=== PATIENT | male | born 1965 | race Caucasian/White ===

== ENCOUNTER 2019-08-04 22:44 | Emergency (ER) | payer SELFPAY ==
[~2019-08-04] VITALS: Ht 172.7 cm; Wt 124.7 kg
[2019-08-04 23:53] LABS: BASOPHILS ABSOLUTE AUTO 0.09 K/mm3 (0.00-0.23); BASOPHILS PERCENT AUTO 1 % (0-2); EOSINOPHILS ABSOLUTE AUTO 0.25 K/mm3 (0.00-0.68); EOSINOPHILS PERCENT AUTO 2 % (0-6); Hematocrit 50.5 % (37.0-53.0); Hemoglobin 16.2 g/dL (13.5-17.5); IMMATURE GRAN ABSOLUTE AUTO 0.08 K/mm3 (0.00-0.10); IMMATURE GRAN PERCENT AUTO 1 % (0-1); LYMPHOCYTES ABSOLUTE AUTO 4.12 K/mm3 (0.84-5.20); LYMPHOCYTES PERCENT AUTO 34 % (21-46); MONOCYTES ABSOLUTE AUTO 1.23 K/mm3 (0.16-1.47); MONOCYTES PERCENT AUTO 10 % (4-13); Mean Corpuscular HGB 29.9 pg (26.0-34.0); Mean Corpuscular HGB Conc 32.1 g/dL (31.5-36.5); Mean Corpuscular Volume 93 fL (80-100); Mean Platelet Volume 9.8 fL (9.1-12.4); NEUTROPHILS ABSOLUTE AUTO 6.53 K/mm3 (1.96-9.15); NEUTROPHILS PERCENT AUTO 53 % (41-73); Platelet Count 341 K/mm3 (150-400); RDW Coefficient Variation 13.9 % (11.7-14.2); RDW Standard Deviation 47.9 fL (35.1-46.3); Red Blood Cell Count 5.42 M/mm3 (4.30-5.90)
[2019-08-05 00:11] LABS: Alanine Aminotransfer (ALT/SGP 50 U/L (12-78); Albumin, Blood 3.5 g/dL (3.4-5.0); Albumin/Globulin Ratio 0.8 (0.8-1.8); Alk Phos 143 U/L (50-136); Anion Gap 6 mmol/L (6-16); Aspartate Aminotrans (AST/SGOT 31 U/L (12-37); Bilirubin, Total 0.2 mg/dL (0.1-1.0); Blood Urea Nitrogen 18 mg/dL (8-24); Bun/Creatinine Ratio 19.6 (12.0-20.0); CO2, Blood 27 mmol/L (21-32); Calcium, Blood 9.1 mg/dL (8.5-10.1); Chloride, Blood 109 mmol/L (98-108); Creatinine, Blood 0.92 mg/dL (0.60-1.20); Globulin, Blood 4.4 g/dL (2.2-4.0); Glomerular Filtration Rate >60 (60-); Glucose, Blood 142 mg/dL (70-99); Sodium, Blood 142 mmol/L (136-145); Total Protein, Blood 7.9 g/dL (6.4-8.2)
[2019-08-05] MEDS ORDERED: ALBU90OI INH (00:36)
[2019-08-05] MEDS ORDERED: Prednisone20 MG PO (00:36)
[2019-08-05] MEDS ORDERED: Zithromax250 MG PO (00:36)
== END 2019-08-05 01:13 | disposition home or self-care (01) ==
LOC: ER 22:44
PROVIDERS: Emergency Medicine
DX: R05 Cough (principal); F17.200 Nicotine dependence, unspecified, uncomplicated; I10 Essential (primary) hypertension
CPT/HCPCS: 71046; 80053; 85025; 93005; 93010; 94640; 99284-25; J1100; J2930

== ENCOUNTER 2022-10-08 07:24 | Inpatient (IN) | payer OTHER ==
[~2022-10-08] VITALS: Ht 175.3 cm; Wt 152.3 kg
[~2022-10-08 07:24] MED LIST: ALBU90OI INH; Prednisone20 MG PO; Zithromax250 MG PO
[2022-10-08 07:45] LABS: BASOPHILS ABSOLUTE AUTO 0.09 K/mm3 (0.00-0.23); BASOPHILS PERCENT AUTO 1 % (0-2); EOSINOPHILS ABSOLUTE AUTO 0.17 K/mm3 (0.00-0.68); EOSINOPHILS PERCENT AUTO 1 % (0-6); Hematocrit 51.6 % (37.0-53.0); Hemoglobin 16.4 g/dL (13.5-17.5); IMMATURE GRAN PERCENT AUTO 1 % (0-1); LYMPHOCYTES ABSOLUTE AUTO 3.69 K/mm3 (0.84-5.20); LYMPHOCYTES PERCENT AUTO 31 % (21-46); MONOCYTES PERCENT AUTO 8 % (4-13); Mean Corpuscular HGB 29.8 pg (26.0-34.0); Mean Corpuscular HGB Conc 31.8 g/dL (31.5-36.5); Mean Corpuscular Volume 94 fL (80-100); Mean Platelet Volume 10.2 fL (9.1-12.4); NEUTROPHILS ABSOLUTE AUTO 7.04 K/mm3 (1.96-9.15); NEUTROPHILS PERCENT AUTO 58 % (41-73); Platelet Count 292 K/mm3 (150-400); RDW Coefficient Variation 14.3 % (11.7-14.2); RDW Standard Deviation 49.5 fL (35.1-46.3); Red Blood Cell Count 5.51 M/mm3 (4.30-5.90); White Blood Cell Count 12.09 K/mm3 (4.00-11.30)
[2022-10-08 08:09] LABS: Albumin, Blood 3.4 g/dL (3.4-5.0); Albumin/Globulin Ratio 0.8 (0.8-1.8); Bilirubin, Total 0.3 mg/dL (0.1-1.0); Bun/Creatinine Ratio 13.1 (12.0-20.0); Calcium, Blood 9.2 mg/dL (8.5-10.1); Creatinine, Blood 0.99 mg/dL (0.60-1.20); Globulin, Blood 4.5 g/dL (2.2-4.0); Potassium, Blood 3.9 mmol/L (3.5-5.5); Total Protein, Blood 7.9 g/dL (6.4-8.2)
[2022-10-08 11:16] VITALS: BP 205/126
[2022-10-08] MEDS ORDERED: AMLO5 PO (11:17)
[2022-10-08] MEDS ORDERED: BENAZEPRIL HCL5 M1 (11:18)
[2022-10-08] MEDS ORDERED: LEVOTHYROXINE13 MCG (11:18)
[2022-10-08 11:25] LABS: Influenza A, PCR NEGATIVE (NEGATIVE); Influenza B, PCR NEGATIVE (NEGATIVE); Resp Syncytial Virus, PCR NEGATIVE (NEGATIVE); SARS-Cov-2 (COVID-19) PCR, MMC NEGATIVE (NEGATIVE)
--- NOTE | 2022-10-08 13:13 | NUR ---
PT ARRIVED TO THE MEDICAL FLOOR VIA GURNEY FROM THE ED, THE PT IS A/OX4, ON O2 @ 2L/MIN. PT WAS ABLE TO TRANSFER FROM THE GURNEY TO THE BED WITH MINIMAL ASSISTANCE. PT WAS ORIENTED TO THE ROOM LAYOUT AND CALL SYSTEM. CALL LIGHT IN REACH
[2022-10-08 13:27] VITALS: BP 203/119
[2022-10-08 13:38] LABS: CHOL/HDL RATIO 4.8; Cholesterol 217 mg/dL (50-200); HDL Cholesterol 45 mg/dL (>39); LDL/HDL RATIO 2.6; Low Density Lipoprotein Chol 116 mg/dL (0-110); Magnesium, Blood 1.9 mg/dL (1.6-2.4); Triglycerides 280 mg/dL (30-160); Very Low Density Lipoprot Chol 56 mg/dL (6-32)
[2022-10-08 13:48] LABS: Anti-Xa UFH, PHA Monitoring <0.10 IU/mL; International Normalized Ratio 0.97; Prothrombin Time Results 10.2 Sec (9.7-11.5)
[2022-10-08 15:00] VITALS: BP 193/119
--- NOTE | 2022-10-08 16:49 | NUR ---
PT IS A/OX4, PLEASANT AND COOPERATIVE. THE PT IS UP WITH MINIMAL AASSIST. PT IS ON 2L/MIN O2 AT THIS TIME AT REST. PT DENIES ANY C/P, SOB AND N/V AT THIS TIME. ECHO WAS DONE THIS AFTERNOON PT HAS BEEN MEDIDICATED FOR HTN PRN. PT IS ON A HEPRIN GTT AT THIS TIME. CALL [facility] IN REACH. WILL CONTINUE TO MONITOR AND ASSESS FOR CHANGES
[2022-10-08 17:12] VITALS: BP 177/114
[2022-10-08 18:42] VITALS: BP 173/93
[2022-10-08 19:28] VITALS: BP 154/102
--- NOTE | 2022-10-09 03:52 | NUR ---
SHIFT SUMMARY NOC PT A/O X 4. PLEASANT AND COOPERATIVE WITH CARE. PT UPSET THAT RT WOULD NOT ALLOW HOME CPAP TUBING TO BE USED BECAUSE IT LOOKS THOUGH PT SMOKES WHILE USING CPAP AT HOME ANT TUBING WAS FILTHY. PT SLEPT WITH 2L/NC O2 AND MAINTAINED SPO2 >92% ON CX BIOX. PT IS ON HEPARIN DRIP GTT STILL. PT ON TELE RUNNING SINUS RHYTHM HR 86 BPM. PT IS CURRENTLY RESTING WITH BED IN LOWEST POSITION, AND CALL LIGHT WITHIN REACH.
[2022-10-09 04:07] VITALS: BP 174/111
[2022-10-09 04:45] VITALS: BP 164/110
[2022-10-09 05:07] LABS: BASOPHILS ABSOLUTE AUTO 0.03 K/mm3 (0.00-0.23); BASOPHILS PERCENT AUTO 0 % (0-2); EOSINOPHILS PERCENT AUTO 0 % (0-6); Hematocrit 51.7 % (37.0-53.0); Hemoglobin 16.9 g/dL (13.5-17.5); IMMATURE GRAN ABSOLUTE AUTO 0.09 K/mm3 (0.00-0.10); IMMATURE GRAN PERCENT AUTO 0 % (0-1); LYMPHOCYTES ABSOLUTE AUTO 1.83 K/mm3 (0.84-5.20); LYMPHOCYTES PERCENT AUTO 9 % (21-46); MONOCYTES ABSOLUTE AUTO 0.32 K/mm3 (0.16-1.47); MONOCYTES PERCENT AUTO 2 % (4-13); Mean Corpuscular HGB 29.8 pg (26.0-34.0); Mean Corpuscular HGB Conc 32.7 g/dL (31.5-36.5); Mean Corpuscular Volume 91 fL (80-100); Mean Platelet Volume 11.1 fL (9.1-12.4); NEUTROPHILS PERCENT AUTO 89 % (41-73); Platelet Count 323 K/mm3 (150-400); RDW Standard Deviation 47.2 fL (35.1-46.3); Red Blood Cell Count 5.67 M/mm3 (4.30-5.90); White Blood Cell Count 20.97 K/mm3 (4.00-11.30)
[2022-10-09 05:09] VITALS: BP 176/122
[2022-10-09 05:22] LABS: Bun/Creatinine Ratio 24.3 (12.0-20.0); Calcium, Blood 9.1 mg/dL (8.5-10.1); Creatinine, Blood 0.95 mg/dL (0.60-1.20)
[2022-10-09 07:32] VITALS: BP 165/101
[2022-10-09 14:54] VITALS: BP 173/99
--- NOTE | 2022-10-09 19:53 | NUR ---
SHIFT SUMMARY PT IS ALERT AND ORIENTED X4. INDEPENDENT IN THE ROOM. ABLE TO MAKE NEEDS KNOWN. 2ND PART OF STRESS TEST PLANNED FOR TOMORROW. BED IS IN THE LOWEST POSITION WITH CALL LIGHT IN REACH. PT REPORTS A DECREASE IN SOB.
[2022-10-09 20:04] VITALS: BP 163/104
[2022-10-10] VITALS (7 sets, daily range): BP systolic 173–204; BP diastolic 101–123
--- NOTE | 2022-10-10 02:44 | NUR ---
SHIFT SUMMARY NOC PT A/O X 4. PT ON 5L/NC O2 WITH SPO2 >92% ON CX BIOX. PT HAS CX HEPARIN INFUSING @ 35 MLS/HR. PT IS NPO IN PREPARATION FOR PART 2 OF STRESS TEST SCHEDULED FOR TODAY. PT HOME CPAP TUBING WAS OK'D BY RT TO USE AFTER PROPER CLEANING. NO ACUTE CHANGES TO REPORT. PT IS CURRENTLY RESTING WITH BED IN LOWEST POSITION, AND CALL LIGHT WITHIN REACH.
--- NOTE | 2022-10-10 02:46 | NUR ---
SHIFT SUMMARY NOC PT A/O X 4. PT ON 5L/NC O2 WITH SPO2 >92% ON CX BIOX. ON TELE SINUS RHTYHM HR 94 BPM. PT HAS CX HEPARIN INFUSING @ 35 MLS/HR. PT IS NPO IN PREPARATION FOR PART 2 OF STRESS TEST SCHEDULED FOR TODAY. PT HOME CPAP TUBING WAS OK'D BY RT TO USE AFTER PROPER CLEANING. NO ACUTE CHANGES TO REPORT. PT IS CURRENTLY RESTING WITH BED IN LOWEST POSITION, AND CALL LIGHT WITHIN REACH.
[2022-10-10 05:21] LABS: Hematocrit 52.6 % (37.0-53.0); Hemoglobin 16.9 g/dL (13.5-17.5); Mean Corpuscular HGB Conc 32.1 g/dL (31.5-36.5); Mean Corpuscular Volume 93 fL (80-100); Mean Platelet Volume 11.2 fL (9.1-12.4); Platelet Count 352 K/mm3 (150-400); RDW Coefficient Variation 14.3 % (11.7-14.2); RDW Standard Deviation 49.2 fL (35.1-46.3); Red Blood Cell Count 5.64 M/mm3 (4.30-5.90); White Blood Cell Count 26.73 K/mm3 (4.00-11.30)
[2022-10-10 05:54] LABS: Bun/Creatinine Ratio 33.9 (12.0-20.0); Calcium, Blood 9.3 mg/dL (8.5-10.1); Creatinine, Blood 1.15 mg/dL (0.60-1.20); Potassium, Blood 4.4 mmol/L (3.5-5.5)
[2022-10-10 06:56] LABS: BAND PERCENT MAN 1 % (0-8); BASOPHILS PERCENT MAN 0 % (0-2); EOSINOPHILS PERCENT MAN 0 % (0-6); LYMPHOCYTES ABSOLUTE MAN 1.33 K/mm3 (0.84-5.20); LYMPHOCYTES PERCENT MAN 5 % (21-46); MONOCYTES PERCENT MAN 3 % (4-13); NEUTROPHILS ABSOLUTE MAN 24.59 K/mm3 (1.96-9.15); SEG NEUTROPHILS PERCENT MAN 91 % (41-73); TOTAL CELLS COUNTED 100
--- NOTE | 2022-10-10 14:51 | NUR ---
PT TO [facility]UC MED FOR POST STRESS SCANS. HEPARIN GTT TO CONTINUE DURING IMAGING.
--- NOTE | 2022-10-10 15:27 | NUR ---
PT RETURNED FROM [facility]
--- NOTE | 2022-10-10 18:27 | NUR ---
SHIFT SUMMARY A&O X 4. BP ELEVATED. MEDS GIVEN ORDERED. PT BEING AGGRESSIVELY DIURESED. LASIX BEING GIVEN ORDERED. STRESS TEST RESULTS WERE ABNORMAL, INFECTIOUS WASTE TECHNICIAN IN TO SEE PT. WILL BE GOING FOR CARDIAC ANGIOGRAM THURSDAY. WANTS TO DIURESE PT MORE BEFORE ANGIO. PT IS ON 5 L'S O2 TO MAINTAIN SATS >90%. WEARS HIS OWN BIPAP AT NOC. IS ON CONT BI-OX. APPETITE IS GOOD. BLOOD SUGARS BEING COVERED PER EMAR. SOLUMEDROL DC'D, IS NOW ON ORAL PREDNISONE. PT REQUESTS BREATHING TREATMENTS PRN. HEPARIN GTT INFUSING PER PHARM. IS PLEASANT & COOPERATIVE WITH ALL CARE. IS USING URINAL INDEPENDENT AT BEDSIDE. IS 1 PERSON ASSIST TO RESTROOM IF NEEDED. PLAN IS TO CONTINUE DIURESING OVER THE WEEKEND AND GOING TO FOOD AIDE ON THURSDAY.
[2022-10-11] VITALS (7 sets, daily range): BP systolic 131–189; BP diastolic 86–120
--- NOTE | 2022-10-11 02:25 | NUR ---
PT MORNING BP WAS ELEVATED. RETOOK WITH MANUAL PUMP AND CUFF WHICH WAS UNCHANGED FROM PREVIOUS READING. CALLED TO NOTIFY HOSPITALIST DR. WISDOM. DR. WISDOM VOICED THAT HE WOULD LOOK IN PT CHART AND ADD NECESSARY ORDERS IN HIMSELF.
--- NOTE | 2022-10-11 03:52 | NUR ---
SHIFT MOSTLY UNREMARKABLE. 2100 MEDICATIONS ADMINISTERED WITHOUT DIFFICULTY. CONTINUOUS HEPARIN RUNNING THROUGHOUT SHIFT. BP HAS BEEN RUNNING HIGH THROUGHOUT SHIFT, HOSPITALIST DR. WISDOM NOTIFIED. SEE RELATED NOTE FOR DETAILS. PT HAS BEEN AOX4, PLEASANT, COOPERATIVE WITH CARE. BED LOCKED IN LOWEST POSITION. PT HAS HAD CPAP ON OVER COURSE OF NIGHT. SATTING >90% ON CONTINUOUS PULSE OX. CALL LIGHT LEFT WITHIN REACH.
--- NOTE | 2022-10-11 05:25 | NUR ---
CALL FROM PHARMACY. STILL WAITING ON XA LAB DRAW RESULTS TO ARRIVE FROM LAB. ORDER WAS FOR LAB TO BE DRAWN AT 0300. EXPLAINED THAT TWO PEOPLE FROM LAB CAME OVER AT ABOUT 0300, ATTEMPTED TO DRAW ON PATIENT AND COULD NOT. THEN LEFT. CALLED LAB. LAB EXPLAINED THAT THEY ARE SHORT STAFFED AND THE TWO PEOPLE THEY HAVE AVAILABLE ARE THE TWO THAT ALREADY TRIED TO GET A DRAW ON PT. EXPLAINED THAT PHARMACY CALLED DUE TO RESULTS BEING LATE. PERSON FROM LAB VOICED THAT THEY WOULD HAVE SOMEONE COME TRY AGAIN.
[2022-10-11 05:50] LABS: BASOPHILS ABSOLUTE AUTO 0.04 K/mm3 (0.00-0.23); BASOPHILS PERCENT AUTO 0 % (0-2); Hematocrit 51.8 % (37.0-53.0); Hemoglobin 16.9 g/dL (13.5-17.5); LYMPHOCYTES ABSOLUTE AUTO 1.39 K/mm3 (0.84-5.20); LYMPHOCYTES PERCENT AUTO 6 % (21-46); MONOCYTES ABSOLUTE AUTO 1.91 K/mm3 (0.16-1.47); MONOCYTES PERCENT AUTO 8 % (4-13); Mean Corpuscular HGB Conc 32.6 g/dL (31.5-36.5); Mean Corpuscular Volume 92 fL (80-100); Mean Platelet Volume 10.4 fL (9.1-12.4); Platelet Count 333 K/mm3 (150-400); RDW Coefficient Variation 14.2 % (11.7-14.2); RDW Standard Deviation 48.3 fL (35.1-46.3); Red Blood Cell Count 5.63 M/mm3 (4.30-5.90); White Blood Cell Count 24.41 K/mm3 (4.00-11.30)
[2022-10-11 05:51] LABS: EOSINOPHILS ABSOLUTE AUTO 0.77 K/mm3 (0.00-0.68); EOSINOPHILS PERCENT AUTO 3 % (0-6); IMMATURE GRAN ABSOLUTE AUTO 0.17 K/mm3 (0.00-0.10); IMMATURE GRAN PERCENT AUTO 1 % (0-1); NEUTROPHILS ABSOLUTE AUTO 20.13 K/mm3 (1.96-9.15); NEUTROPHILS PERCENT AUTO 82 % (41-73)
[2022-10-11 06:15] LABS: Albumin, Blood 3.3 g/dL (3.4-5.0); Anion Gap 7 mmol/L (6-16); Blood Urea Nitrogen 37 mg/dL (8-24); Bun/Creatinine Ratio 36.6 (12.0-20.0); CO2, Blood 33 mmol/L (21-32); Calcium, Blood 8.9 mg/dL (8.5-10.1); Chloride, Blood 98 mmol/L (98-108); Creatinine, Blood 1.01 mg/dL (0.60-1.20); Glomerular Filtration Rate 87 (60-); Glucose, Blood 263 mg/dL (70-99); Magnesium, Blood 2.5 mg/dL (1.6-2.4); Phosphorus, Blood 3.3 mg/dL (2.5-4.9); Potassium, Blood 4.5 mmol/L (3.5-5.5); Sodium, Blood 138 mmol/L (136-145)
--- NOTE | 2022-10-11 16:20 | NUR ---
PATIENT RESTING IN BED THROUGHOUT TODAYS SHIFT. HE REPORTS FEELING TIRED AND INTERMITTENTLY NAPS WHILE RESTING IN BED. IV TO RAC PATENT AND CONTINUING HEPARIN DRIP TO MAINTAIN THERAPEUTIC LEVELS. PATIENT DENIES ANY DISTRESS OR PAIN. PATIENT COOPERATIVE WITH CARE AND COMPLIANT WITH ALL MEDICATIONS. BLOOD PRESSURES CONTINUE TO TREND DOWN WITH SYSTOLIC DECREASING FROM 180'S TO 130'S. PATIENT RECEIVING DIURESIS TREATMENT AND HAS BEEN UTILIZING HIS URINALS AT BEDSIDE TO VOID. TELEMETRY MONITORING IN PLACE AND SHOWING SR WITH HEART RATES IN THE 80'S. LANTUS INITIATED TODAY FOR GLUCOSE CONTROL, PATIENT REPORTS NO ADMINISTRATION OF INSULIN PRODUCTS WHEN AT HOME. PATIENT UP TO SHOWER PER HIS REQUEST. NURSING WILL CONTINUE TO MONITOR.
--- NOTE | 2022-10-11 22:46 | NUR ---
ASSUMED CARE OF PT AT 2220. PT SLEEPING IN BED WITH 5L NC ON. RR EVEN AND UNLABORED. CALL LIGHT WITHIN REACH.
[2022-10-12 03:20] VITALS: BP 166/97
[2022-10-12 03:24] LABS: BASOPHILS ABSOLUTE AUTO 0.03 K/mm3 (0.00-0.23); BASOPHILS PERCENT AUTO 0 % (0-2); EOSINOPHILS PERCENT AUTO 0 % (0-6); Hematocrit 54.2 % (37.0-53.0); Hemoglobin 17.6 g/dL (13.5-17.5); IMMATURE GRAN ABSOLUTE AUTO 0.14 K/mm3 (0.00-0.10); IMMATURE GRAN PERCENT AUTO 1 % (0-1); LYMPHOCYTES ABSOLUTE AUTO 3.07 K/mm3 (0.84-5.20); LYMPHOCYTES PERCENT AUTO 16 % (21-46); MONOCYTES ABSOLUTE AUTO 2.31 K/mm3 (0.16-1.47); MONOCYTES PERCENT AUTO 12 % (4-13); Mean Corpuscular HGB 30.1 pg (26.0-34.0); Mean Corpuscular HGB Conc 32.5 g/dL (31.5-36.5); Mean Corpuscular Volume 93 fL (80-100); Mean Platelet Volume 10.3 fL (9.1-12.4); NEUTROPHILS ABSOLUTE AUTO 14.26 K/mm3 (1.96-9.15); NEUTROPHILS PERCENT AUTO 72 % (41-73); Platelet Count 306 K/mm3 (150-400); RDW Coefficient Variation 14.3 % (11.7-14.2); Red Blood Cell Count 5.85 M/mm3 (4.30-5.90); White Blood Cell Count 19.81 K/mm3 (4.00-11.30)
[2022-10-12 03:42] LABS: Bun/Creatinine Ratio 32.2 (12.0-20.0); Calcium, Blood 8.9 mg/dL (8.5-10.1); Creatinine, Blood 0.99 mg/dL (0.60-1.20); Potassium, Blood 3.9 mmol/L (3.5-5.5)
--- NOTE | 2022-10-12 04:00 | NUR ---
SHIFT SUMMARY; SINCE ASSUMPTION OF CARE THERE HAS BEEN NO ACUTE CHANGES. THE PT HAS BEEN SLEEPING IN BED WITH HIS CPAP IN PLACE. O2 SATS ARE >90%. THE PT IS AXO X4 AND INDEPENDENTLY USES THE URINAL AT BEDSIDE. THE PT CALLS APPROPIRATLEY FOR ALL OTHER NEEDS. HEPARIN DRIP REMAINS INFUSING. TELE IS IN PLACE, NO EVENTS OVERNIGHT. THE PT CONTINUES TO BE DIURESED WHILE WAITING FOR HIS ANGIOGRAM ON THURSDAY. THE PT DENIES ANY CHEST PAIN/PRESSURE, SOB, PAIN OR N/V. CURRENTLY THE PT IS SLEEPING IN BED WITH THE BED IN THE LOWEST POSITION AND THE CALL LIGHT AT BEDSIDE.
[2022-10-12 07:48] VITALS: BP 139/99
[2022-10-12 15:51] VITALS: BP 124/73
--- NOTE | 2022-10-12 15:57 | NUR ---
PATIENT SLEEPING AT ASSUMPTION OF CARE AND IS ROUSABLE TO VOICE, A&OX4, BUT REPORTEDLY "VERY TIRED" AND OBSERVABLY NAPPING THROUGHOUT THE MORNING AND EARLY AFTERNOON. O2 SATS WHILE ASLEEP DROP LOW 84% WITH HOME BIPAP RUNNING AT 5LPM AND HIGH 94% APNEA PERIODS OF APPROX 20-25 SECONDS OBSERVED WHILE SLEEPING FOLLOWED BY RETURN OF SPONTANEOUS RESPIRATIONS. PROVIDER AT BEDSIDE TO REVIEW PLAN OF CARE AND RECCOMENDS PCP EVALUATE CURRENT HOME BIPAP EQUIPMENT AND USE. CARDIOLOGY AT BEDSIDE FOR CONSENT OF ANGIOGRAM SCHEDULED FOR TOMORROW MORNING (10-11AM). HEPARIN DRIP STILL RUNNING WITH NO TITRATION ORDERS. MOST RECENT INR: 0.38. BLOOD PRESSURE TRENDING DOWNWARD THROUGHOUT THE SHIFT. DRSSING TO PIV AT RFA REPLACED AND REMAINS PATENT. NURSING WILL CONTINUE TO MONITOR.
--- NOTE | 2022-10-12 18:00 | NUR ---
NURSE NOTE THIS RN AGREES WITH SHIFT SUMMARY AND SHIFT ASSESSMENT OF BLACK LEATHER BUFFER.
[2022-10-12 20:03] VITALS: BP 120/81
[2022-10-13] VITALS (12 sets, daily range): BP systolic 105–184; BP diastolic 56–105
[2022-10-13 03:34] LABS: Hematocrit 53.8 % (37.0-53.0); Hemoglobin 17.5 g/dL (13.5-17.5); Mean Corpuscular HGB 30.1 pg (26.0-34.0); Mean Corpuscular HGB Conc 32.5 g/dL (31.5-36.5); Mean Corpuscular Volume 92 fL (80-100); Platelet Count 288 K/mm3 (150-400); RDW Coefficient Variation 14.3 % (11.7-14.2); RDW Standard Deviation 48.7 fL (35.1-46.3); Red Blood Cell Count 5.82 M/mm3 (4.30-5.90); White Blood Cell Count 19.39 K/mm3 (4.00-11.30)
[2022-10-13 03:49] LABS: Albumin, Blood 2.9 g/dL (3.4-5.0); Anion Gap 7 mmol/L (6-16); Blood Urea Nitrogen 31 mg/dL (8-24); Bun/Creatinine Ratio 32.3 (12.0-20.0); CO2, Blood 34 mmol/L (21-32); Calcium, Blood 8.3 mg/dL (8.5-10.1); Chloride, Blood 96 mmol/L (98-108); Creatinine, Blood 0.96 mg/dL (0.60-1.20); Glomerular Filtration Rate 93 (60-); Glucose, Blood 134 mg/dL (70-99); Phosphorus, Blood 2.7 mg/dL (2.5-4.9); Potassium, Blood 3.7 mmol/L (3.5-5.5); Sodium, Blood 137 mmol/L (136-145)
--- NOTE | 2022-10-13 04:08 | NUR ---
SUMMARY: NO ACUTE EVENTS OVERNIGHT. PATIENT HAD AN UPSET STOMACH WITH A FEW BMS OVERNIGHT. TOOK A SHOWER. HEPARIN DRIP RUNNING CONTINUOUSLY. WORE CPAP WHILE SLEEPING. 5L NC WHEN AWAKE. NPO SINCE MIDNIGHT FOR ANGIO TODAY.
--- NOTE | 2022-10-13 10:21 | NUR ---
PT REPORTED FEELING NAUSEA. CHECKED CBG AND IT WAS 154. TREATED NAUSEA PER EMAR.
--- NOTE | 2022-10-13 13:55 | NUR ---
PT AOX4 AND COOPERATIVE OF ALL CARE. PT INDEPENDENT IN ROOM WILL NEED HELP AT TIMES WITH LINES. PT HAD ANGIO TODAY. REPORT WAS GIVEN TO RECIEVING CHERYLE COOK. ALL PERSONAL ITEMS WERE MOVED TO PT'S ROOM IN PCU 5.
--- NOTE | 2022-10-13 14:00 | NUR ---
Patient arrived from [facility] from [facility] on tele. Patient is alert and oriented and is able to communicate his needs. getting CBG as probanly did not do during cath. He has TR band site right wrist and has 11cc in band and is WNL, no hematoma or oozing. Will call to see if patient can eat.
--- NOTE | 2022-10-13 17:08 | NUR ---
Patient's family at bedside and had Dr Cortes come and talk with them. He is currently sleeping on personal CPAP nasal prongs. All air out of TR band and no bruising or oozing or hematoma. he has ate since he has been back. Talked with field nurse case manager to get new PCP prior to leaving tomorrow. IV RAC patent and flushed post meds. CBG checked no coverage.
--- NOTE | 2022-10-13 23:51 | NUR ---
ASSUMPTION OF CARE/ASSESSMENT: ASSUMED CARE OF PT AT 2100. PT AWAKE AND LYING IN BED; A&O X 4 AND COOPERATIVE WITH CARE. PT ON HOME CPAP AND MANAGING WELL; C/O EXERTIONAL DYSPNEA WHEN UP TO USING URINAL AND WHEN REPOSITIONING IN BED, BUT ABLE TO CATCH BREATH ONCE AT REST. PT SR ON MONITOR WITH HR IN THE 70-80. SBP 120'S, NO C/O CHEST PAIN AT THIS TIME. PT HYPOACTIVE WITH ABD OBESE, SOFT AND NON-TENDER; TOLERATING PO INTAKE. PT USING URINAL AT BEDSIDE INDEPENDENTLY; URINE CLEAR, YELLOW. PT HAS NO PAIN COMPLAINTS AT THIS TIME. BED LOWERED, CALL LIGHT IN REACH, WILL CONTINUE TO MONITOR UNTIL ONCOMING RN ARRIVES.
[2022-10-14] VITALS (19 sets, daily range): BP systolic 104–231; BP diastolic 66–154
--- NOTE | 2022-10-14 06:31 | NUR ---
SHIFT SUMMARY: NO ACUTE CHANGES OVERNIGHT. PT HAD EPISODE OF HYPERTENSION WITH SBP 180-200; PT MEDICATED WITH PRN HYDRALAZINE AND SBP DOWN TO 120-140'S. PT HAD SOME NAUSEA THIS MORNING AND MEDICATED PER EMAR AND GOT UP TO THE SHOWER EARLY THIS MORNING. COMPLETE LINEN CHANGE ON BEDDING AND PT INDEPENDENT WITH SHOWER. PT SLEEPING SINCE SHOWER. PT REMAINS ON CPAP, VSS. BED LOWERED, CALL LIGHT IN REACH, WILL CONTINUE TO MONITOR.
[2022-10-14 09:29] LABS: Albumin, Blood 2.6 g/dL (3.4-5.0); Anion Gap 6 mmol/L (6-16); Blood Urea Nitrogen 30 mg/dL (8-24); Bun/Creatinine Ratio 31.4 (12.0-20.0); CO2, Blood 31 mmol/L (21-32); Calcium, Blood 8.4 mg/dL (8.5-10.1); Chloride, Blood 100 mmol/L (98-108); Creatinine, Blood 0.96 mg/dL (0.60-1.20); Glomerular Filtration Rate 93 (60-); Glucose, Blood 226 mg/dL (70-99); Phosphorus, Blood 2.6 mg/dL (2.5-4.9); Potassium, Blood 3.8 mmol/L (3.5-5.5); Sodium, Blood 137 mmol/L (136-145)
--- NOTE | 2022-10-14 15:40 | NUR ---
RN/SHIFT SUMMARY MORNING REPORT AND GREETING PERFORMED WITH PATIENT. ASSESSMENT AND MEDICATION PASS PERFORMED. THE PATIENT SEEMS TO BE IN GOOD SPIRIT WITH LITTLE TO NO DISCOMFORT AT THE TIME OF ASSESSMENT AND SO ON THROUGHOUT THE MORNING AND EARLY AFTERNOON. THE PATIENT REFUSED A BEDBATH PRIOR TO TRANSFER TO MEDICAL FLOOR. THE PATIENT WAS THEN TRANSFERED TO MEDICAL FLOOR WITH REPORT GIVEN TO MEDICAL FLOOR NURSE. THE PATIENT TRANSFERED VIA WHEELCHAIR.
--- NOTE | 2022-10-14 18:44 | NUR ---
RN/SHIFT SUMMARY MORNING REPORT AND PATIENT GREETED. PATIENT ASSESSMENT AND MEDICATION PASS COMPLETED. PATIENT SEEMED TO BE VERY TIRED AND SLEPT WITH THE USE OF A CPAP FROM HOME FOR A MAJORITY OF THE DAY WHICH IS BASELINE FOR HIM.THE DAY WAS UNEVENTFUL WITH THE EXCEPTION OF GETTING BLOOD SUGARS IN THERAPEUTIC RANGE AND TITRATING OXYGEN UNTIL THE PATIENT TOLERATES ROOM AIR. THE PATIENT THEN HAD A SMALL BOUT OF EPISTAXIS THAT STOPED ON ITS OWN. THE PATIENT WAS GIVEN SOME LUBRICANT TO ASSIST IN KEEPING THE NAIRS LUBRICATED.
[2022-10-15 05:25] VITALS: BP 95/77
[2022-10-15 06:16] LABS: Hematocrit 51.5 % (37.0-53.0); Hemoglobin 16.5 g/dL (13.5-17.5); Mean Corpuscular HGB 29.3 pg (26.0-34.0); Mean Corpuscular Volume 92 fL (80-100); Mean Platelet Volume 10.6 fL (9.1-12.4); Platelet Count 283 K/mm3 (150-400); RDW Standard Deviation 47.6 fL (35.1-46.3); Red Blood Cell Count 5.63 M/mm3 (4.30-5.90); White Blood Cell Count 17.34 K/mm3 (4.00-11.30)
[2022-10-15 06:48] LABS: Albumin, Blood 2.7 g/dL (3.4-5.0); Anion Gap 6 mmol/L (6-16); Blood Urea Nitrogen 29 mg/dL (8-24); Bun/Creatinine Ratio 27.9 (12.0-20.0); CO2, Blood 33 mmol/L (21-32); Calcium, Blood 8.7 mg/dL (8.5-10.1); Chloride, Blood 98 mmol/L (98-108); Creatinine, Blood 1.04 mg/dL (0.60-1.20); Glomerular Filtration Rate 84 (60-); Glucose, Blood 142 mg/dL (70-99); Phosphorus, Blood 3.5 mg/dL (2.5-4.9); Potassium, Blood 3.7 mmol/L (3.5-5.5); Sodium, Blood 137 mmol/L (136-145)
--- NOTE | 2022-10-15 06:59 | NUR ---
SHIFT SUMMARY PATIENT ALERT AND ORIENTED X4. PATIENT INDEPENDENT IN ROOM. MEDICATED PER EMAR FOR NAUSEA. VITAL SIGNS STABLE. PATIENT WORE HOME CPAP OVERNIGHT. NO ACUTE ISSUES NOTED OVERNIGHT. WILL CONTINUE TO MONITOR. CALL LIGHT WITHIN REACH.
[2022-10-15 08:00] VITALS: BP 132/93
--- NOTE | 2022-10-15 10:55 | NUR ---
RN/SHIFT SUMMARY MORNING REPORT AND PATIENT GREETING. MORNING MEDICATION AND ASSESSMENT. THE PATIENT IS RESTING REGULARLY THROUGHOUT THE MORNING.
[2022-10-15] MEDS ORDERED: ALBU90OI INH (12:25)
[2022-10-15] MEDS ORDERED: AMLO10 PO (12:26)
[2022-10-15] MEDS ORDERED: Synthroid200 MCG PO (12:27)
[2022-10-15] MEDS ORDERED: ASPI81CH PO (12:27)
[2022-10-15] MEDS ORDERED: ATOR40TA PO ×2 (12:28→12:31)
[2022-10-15] MEDS ORDERED: EUTHYROX125 MCG PO (12:31)
[2022-10-15] MEDS ORDERED: CLOP75 PO (12:32)
[2022-10-15] MEDS ORDERED: FURO40 PO (12:32)
[2022-10-15] MEDS ORDERED: LEVO750 PO (12:33)
[2022-10-15] MEDS ORDERED: ENTRESTO 49 MG1 EACH PO (12:34)
[2022-10-15] MEDS ORDERED: METO100ER PO (12:34)
[2022-10-15] MEDS ORDERED: VISBIOME 112.51 EACH PO (12:35)
[2022-10-15] MEDS ORDERED: METF500 PO (12:36)
== END 2022-10-15 13:06 | disposition home or self-care (01) | DRG 246 ==
LOC: ER 07:24 → MEDS 09:50 → PCU 10-13 11:45
PROVIDERS: Emergency Medicine; Internal Medicine; ADMIT Internal Medicine
PROC: 5A09357 Assistance with Respiratory Ventilation, Less than 24 Consecutive Hours, Continuous Positive Airway Pressure (ICD-10-PCS; 2022-10-08)
PROC: 027034Z Dilation of Coronary Artery, One Artery with Drug-eluting Intraluminal Device, Percutaneous Approach (ICD-10-PCS; principal; 2022-10-13)
PROC: 4A023N7 Measurement of Cardiac Sampling and Pressure, Left Heart, Percutaneous Approach (ICD-10-PCS; 2022-10-13)
PROC: B211YZZ Fluoroscopy of Multiple Coronary Arteries using Other Contrast (ICD-10-PCS; 2022-10-13)
PROC: B24 Imaging, Heart, Ultrasonography (ICD-10-PCS; 2022-10-13)
DX: I21.4 Non-ST elevation (NSTEMI) myocardial infarction (principal); I50.33 Acute on chronic diastolic (congestive) heart failure; J18.9 Pneumonia, unspecified organism; J96.21 Acute and chronic respiratory failure with hypoxia; J44.0 Chronic obstructive pulmonary disease with (acute) lower respiratory infection; J44.1 Chronic obstructive pulmonary disease with (acute) exacerbation; Z68.41 Body mass index [BMI] 40.0-44.9, adult; I43 Cardiomyopathy in diseases classified elsewhere; I11.0 Hypertensive heart disease with heart failure; E66.01 Morbid (severe) obesity due to excess calories; G47.33 Obstructive sleep apnea (adult) (pediatric); E03.9 Hypothyroidism, unspecified; I25.10 Atherosclerotic heart disease of native coronary artery without angina pectoris; E11.65 Type 2 diabetes mellitus with hyperglycemia; I08.0 Rheumatic disorders of both mitral and aortic valves; I25.5 Ischemic cardiomyopathy; Z20.822 Contact with and (suspected) exposure to COVID-19; T38.0X5A Adverse effect of glucocorticoids and synthetic analogues, initial encounter; R74.01 Elevation of levels of liver transaminase levels; K76.1 Chronic passive congestion of liver; F12.10 Cannabis abuse, uncomplicated; R94.31 Abnormal electrocardiogram [ECG] [EKG]; R26.9 Unspecified abnormalities of gait and mobility; Z91.148 Patient's other noncompliance with medication regimen for other reason; Z87.891 Personal history of nicotine dependence; Z79.51 Long term (current) use of inhaled steroids; Z79.899 Other long term (current) drug therapy
CPT/HCPCS: 0241U; 36415; 71046; 76937; 78452; 80048; 80053; 80061; 80069; 82947; 83036; 83605; 83735; 83880; 84145; 84439; 84443; 84484; 85025; 85027; 85049; 85347; 85520; 85610; 85730; 87040; 93005; 93010; 93017; 93306; 93458; 94640; 94660; 94664; 94762; 96374; 96375; 97162; 97530; 99285-25; A9270; A9500; C1725; C1769; C1874; C1887; C1894; C9600; J0360; J0696; J0706; J1644; J1650; J1815; J1940; J2250; J2405; J2785; J2930; J3010; J3246; J7030; J7050; J7512; Q9967

== ENCOUNTER 2023-03-16 14:51 | Inpatient (IN) | payer OTHER ==
[~2023-03-16] VITALS: Ht 172.7 cm; Wt 139.1 kg
[~2023-03-16 14:51] MED LIST changes: +AMLO10 PO; +AMLO5 PO; +ASPI81CH PO; +ATOR40TA PO; +BENAZEPRIL HCL5 M1; +CLOP75 PO; +ENTRESTO 49 MG1 EACH PO; +EUTHYROX125 MCG PO; +FURO40 PO; +LEVO750 PO; +LEVOTHYROXINE13 MCG; +METF500 PO; +METO100ER PO; +Synthroid200 MCG PO; +VISBIOME 112.51 EACH PO
[2023-03-16 15:32] LABS: BASOPHILS ABSOLUTE AUTO 0.08 K/mm3 (0.00-0.23); BASOPHILS PERCENT AUTO 1 % (0-2); EOSINOPHILS ABSOLUTE AUTO 0.12 K/mm3 (0.00-0.68); EOSINOPHILS PERCENT AUTO 1 % (0-6); Hematocrit 51.1 % (37.0-53.0); Hemoglobin 16.2 g/dL (13.5-17.5); IMMATURE GRAN ABSOLUTE AUTO 0.03 K/mm3 (0.00-0.10); IMMATURE GRAN PERCENT AUTO 0 % (0-1); LYMPHOCYTES ABSOLUTE AUTO 2.25 K/mm3 (0.84-5.20); LYMPHOCYTES PERCENT AUTO 17 % (21-46); MONOCYTES ABSOLUTE AUTO 1.02 K/mm3 (0.16-1.47); MONOCYTES PERCENT AUTO 8 % (4-13); Mean Corpuscular HGB 29.3 pg (26.0-34.0); Mean Corpuscular HGB Conc 31.7 g/dL (31.5-36.5); Mean Corpuscular Volume 92 fL (80-100); Mean Platelet Volume 10.6 fL (9.1-12.4); NEUTROPHILS ABSOLUTE AUTO 9.58 K/mm3 (1.96-9.15); NEUTROPHILS PERCENT AUTO 73 % (41-73); Platelet Count 327 K/mm3 (150-400); RDW Coefficient Variation 15.4 % (11.7-14.2); RDW Standard Deviation 52.2 fL (35.1-46.3); Red Blood Cell Count 5.53 M/mm3 (4.30-5.90); White Blood Cell Count 13.08 K/mm3 (4.00-11.30)
[2023-03-16 15:34] LABS: Albumin, Blood 3.6 g/dL (3.4-5.0); Albumin/Globulin Ratio 0.8 (0.8-1.8); Bilirubin, Total 0.3 mg/dL (0.1-1.0); Bun/Creatinine Ratio 10.4 (12.0-20.0); Creatinine, Blood 1.15 mg/dL (0.60-1.20); Globulin, Blood 4.7 g/dL (2.2-4.0); Potassium, Blood 4.4 mmol/L (3.5-5.5); Total Protein, Blood 8.3 g/dL (6.4-8.2)
[2023-03-16 19:31] LABS: Anti-Xa UFH, PHA Monitoring <0.10 IU/mL; International Normalized Ratio 1.05
[2023-03-16 20:23] VITALS: BP 145/79
[2023-03-16 23:20] VITALS: BP 127/80
[2023-03-17 03:38] VITALS: BP 132/85
[2023-03-17 03:47] LABS: Hematocrit 49.5 % (37.0-53.0); Hemoglobin 15.9 g/dL (13.5-17.5); Mean Corpuscular HGB 29.3 pg (26.0-34.0); Mean Corpuscular HGB Conc 32.1 g/dL (31.5-36.5); Mean Corpuscular Volume 91 fL (80-100); Platelet Count 311 K/mm3 (150-400); RDW Coefficient Variation 15.5 % (11.7-14.2); RDW Standard Deviation 52.1 fL (35.1-46.3); Red Blood Cell Count 5.43 M/mm3 (4.30-5.90); White Blood Cell Count 14.44 K/mm3 (4.00-11.30)
[2023-03-17 05:26] LABS: Bun/Creatinine Ratio 11.5 (12.0-20.0); Calcium, Blood 8.7 mg/dL (8.5-10.1); Creatinine, Blood 1.22 mg/dL (0.60-1.20); Potassium, Blood 3.9 mmol/L (3.5-5.5)
--- NOTE | 2023-03-17 06:26 | NUR ---
SHIFT SUMMARY PATIENT ARRIVED TO PCU 14 VIA STRETCHER. PATIENT IS ALERT AND ORIENTED X4, STEADY ON HIS FEET AND SELF TRANSFERRED TO THE HOSPITAL BED. PATIENT DENIED HAVING CHEST PAIN. PLACED ON 2 LITERS O2 FOR SLEEP PATIENT DID NOT TOLERATE HOSPITAL PROVIDED BIPAP, REPORTED IT MADE HIM FEEL SICK. MEDICATED PER EMAR FOR NAUSEA. VITAL SIGNS STABLE. TROPONIN TRENDING DOWN. WILL CONTINUE TO MONITOR. CALL LIGHT WITHIN REACH.
[2023-03-17 07:58] VITALS: BP 132/96
--- NOTE | 2023-03-17 10:58 | NUR ---
AM NOTE: PT WAS UPSET THIS MORNING AFTER A DOSE OF LASIX WAS GIVEN AND PT HAD URINARY INCONTINCE. PT WANTED TO LEAVE AMA NECKTIE OPERATOR POCKETS AND PIECES CAME AND TRIED TO EXPLAIN WHY HE'S IN THE HOSPITAL AFTER THIS RN ALSO EDUCATED THE PT, PT KEEPS SAYING HE CANT KEEP PEEING HIS PANTS AND NOT BEING ABLE TO GO TO THE BATHROOM WITH ALL THE WIRES AND LINES HOOKED UP TO HIM, PT DOESNT SEEM TO REMEMBER THAT THIS RN MADE HIM AWARE OF HIS MORNING MEDS AND WAS INSTRUCTED TO USE THE URINAL AT THE TABLE THEN PT INSISTED TO GET BACK IN BED SO HE CAN GET SOME REST, THEN PT WOKE UP ASKING FO FOOD, PT ATE BREKAFAST WITH NO ISSUES. PT CALMED DOWN AFTER NECKTIE OPERATOR POCKETS AND PIECES TALKED TO HIM WENT BACK TO HIS ROOM AND AGREED TO GET IN THE SHOWER. PT THEN REALIZED HE WAS JUST UPSET EMBARASSED AND APOLOGIZED ABOUT IT. PT ASKED TO CALL HIS MOM TO SHE CAN COME OVER, MOM AT THE BED SIDE AT THIS TIME, ECHO BEING DONE
[2023-03-17 11:16] VITALS: BP 132/88
--- NOTE | 2023-03-17 15:05 | NUR ---
THIS RN WAS CALLED INTO PT'S ROOM, PT'S IV GOT PULLED WITH BLOOD EVERYWHERE IN THE ROOM AND BATHROOM SINK, PT WAS DEFENSIVE AND UPSET AGAIN THAT ALL HE DID WAS TO TRY TO USE THE URINAL. WATCHMAKING TEACHER STATED HE PULLED HIS SPO2 CORD AND TELE AND WAS BANGING THE BOX IN THE TABLE AND THAT THE PT DIDNT PUSH HIS BUTTON TO CALL FOR HELP, AGAIN PT NOT UNDERSTANDING THAT HE CANT WALK AROUND THE ROOM WITHOUT GETTING ANY HELP BECAUSE OF THE IV AND CORDS AND HE KEEPS INSISTING THAT ALL HE DID IS TO GET UP AND USE THE URINAL WAS EDUCATED AND REDIRECTED SO MANY TIMES. PT REMAINS DEFENSIVE TALKING TO COMPOSITE SCIENCE TEACHER RIGHT NOW WITH MOM AT THE BEDSIDE DUE TO THIS BEHAVIORAL ISSUES.
[2023-03-17 16:02] VITALS: BP 127/82
--- NOTE | 2023-03-17 17:53 | NUR ---
PT SUMMARY: DR BARRIOS WAS ABLE TO DISCUSS ISSUE IN THE PT'S ROOM WITH BOTH MOM AND THE PT, BOTH AGREEABLE WITH THE PLAN, HEPARIN GTT SWITCHED TO THERAPEUTIC DOSE OF LOVENOX SHOT FIRST DOSE WAS GIVEN, PT AGREED TO FOLLOW TREATMENT/PROTOCOL AT THIS TIME. IV PLACED ON LEFT FOREARM, TELE WAS PLACED BACK, OFFERED URINAL WHEN THIS RN WAS IN THE PT'S ROOM. CONDOM CATH WAS PLACED ONCE DIDNT WORK FOR THE PT. PT ABLE TO AMBULATE TO THE BATHROOM. TOOTH CUTTER ABLE TO MAKE PHONE CALLS AND MAKE CARDIOLOGY OUTPT APPT. PT TRANSITIONED TO MED WITH TELE. VITALS HAS BEEN STABLE, PT HAS BEEN CHEST PAIN FREE. USED BIPAP WHEN ASLEEP. PT STARTED GETTING CLAMMY AND SWEATY VITALS STABLE CBG 125, PT C/O FEELING A LITTLE FOGGY ON HIS HEAD REQUESTED A FAN, MOM AT THE BEDSIDE REPORTED FAMILY HX OF PANIC ATTACKS PT REQUESTED O2 VIA NASAL CANNULA CURRENTLY AT 4L SATS ABOVE 90%, PT DENIES ANY NAUSEA/DIZZINESS/PAIN. PT ATE DINNER THEN WENT BACK TO BED. PT HAS BEEN CONSISTENTLY ASKING HIS MOM TO STAY NEXT TO HIM WHILE HOLDING HIS HANDS. NO OTHER ISSUES AT THIS TIME, WILL REPORT TO ONCOMING SHIFT
[2023-03-17 21:51] VITALS: BP 142/92
[2023-03-18] VITALS (7 sets, daily range): BP systolic 126–157; BP diastolic 74–104
--- NOTE | 2023-03-18 07:21 | NUR ---
SHIFT SUMMARY PATIENT ALERT AND ORIENTED X 3-4, VERY DROWSY OVERNIGHT. MEDICATED PER EMAR FOR HEAD ACHE. NO BEHAVIORAL ISSUES NOTED OVERNIGHT. VITAL SIGNS STABLE. NO ACUTE ISSUES NOTED OVERNIGHT. WILL CONTINUE TO MONITOR. CALL LIGHT WITHIN REACH.
[2023-03-18 07:26] LABS: BASOPHILS ABSOLUTE AUTO 0.09 K/mm3 (0.00-0.23); BASOPHILS PERCENT AUTO 1 % (0-2); EOSINOPHILS ABSOLUTE AUTO 0.21 K/mm3 (0.00-0.68); EOSINOPHILS PERCENT AUTO 2 % (0-6); Hematocrit 52.8 % (37.0-53.0); Hemoglobin 16.5 g/dL (13.5-17.5); IMMATURE GRAN ABSOLUTE AUTO 0.04 K/mm3 (0.00-0.10); IMMATURE GRAN PERCENT AUTO 0 % (0-1); LYMPHOCYTES PERCENT AUTO 23 % (21-46); MONOCYTES ABSOLUTE AUTO 1.18 K/mm3 (0.16-1.47); MONOCYTES PERCENT AUTO 10 % (4-13); Mean Corpuscular HGB Conc 31.3 g/dL (31.5-36.5); Mean Corpuscular Volume 93 fL (80-100); Mean Platelet Volume 10.3 fL (9.1-12.4); NEUTROPHILS ABSOLUTE AUTO 7.28 K/mm3 (1.96-9.15); NEUTROPHILS PERCENT AUTO 64 % (41-73); Platelet Count 296 K/mm3 (150-400); RDW Coefficient Variation 15.1 % (11.7-14.2); RDW Standard Deviation 51.8 fL (35.1-46.3); Red Blood Cell Count 5.68 M/mm3 (4.30-5.90)
[2023-03-18 07:40] LABS: Bun/Creatinine Ratio 17.1 (12.0-20.0); Creatinine, Blood 1.11 mg/dL (0.60-1.20); Potassium, Blood 3.9 mmol/L (3.5-5.5)
--- NOTE | 2023-03-18 17:45 | NUR ---
PT SUMMARY: CLIENT ACCOUNT MANAGER WAS CONSULTED TODAY PT FOR ANGIO IN AM, NPO AT MIDNIGHT, TO START HEPARIN GTT TONIGHT AT 1999. DR MOORE ABLE TO DISCUSS PLAN WITH THE MOM AND THE PT BOTH AGREEABLE. VITALS HAS BEEN STABLE PT HAS BEEN CALLING APPROPRIATELY AND COOPERATIVE WITH CARES, PT HAS JESS AMBULATING IN THE ROOM USES URINAL FOR VOIDING, MOM AT THE BEDSIDE ALMOST MOST OF THE SHIFT. PT DENIES ANY CHEST PAIN/PRESSURE. VITALS HAS BEEN STABLE. PT CONTINUES TO DIURESE INCREASED LASIX TO 60MG BID, PT HAD >1500MLS UO. NO OTHER ISSUES ENCOUNTERED FOR THE SHIFT, WILL REPORT TO ONCOMING SHIFT
[2023-03-18 18:47] LABS: Albumin, Blood 3.4 g/dL (3.4-5.0); Albumin/Globulin Ratio 0.7 (0.8-1.8); Bilirubin, Total 0.3 mg/dL (0.1-1.0); Bun/Creatinine Ratio 15.4 (12.0-20.0); Calcium, Blood 9.3 mg/dL (8.5-10.1); Creatinine, Blood 1.3 mg/dL (0.60-1.20); Globulin, Blood 4.6 g/dL (2.2-4.0); Potassium, Blood 3.6 mmol/L (3.5-5.5)
[2023-03-19] VITALS (10 sets, daily range): BP systolic 109–158; BP diastolic 74–136
[2023-03-19 02:11] LABS: Hematocrit 53.3 % (37.0-53.0); Hemoglobin 17.4 g/dL (13.5-17.5); Mean Corpuscular HGB 29.3 pg (26.0-34.0); Mean Corpuscular HGB Conc 32.6 g/dL (31.5-36.5); Mean Corpuscular Volume 90 fL (80-100); Mean Platelet Volume 10.2 fL (9.1-12.4); Platelet Count 316 K/mm3 (150-400); RDW Coefficient Variation 14.9 % (11.7-14.2); RDW Standard Deviation 48.9 fL (35.1-46.3); Red Blood Cell Count 5.94 M/mm3 (4.30-5.90); White Blood Cell Count 12.35 K/mm3 (4.00-11.30)
[2023-03-19 02:29] LABS: Bun/Creatinine Ratio 16.4 (12.0-20.0); Calcium, Blood 9.1 mg/dL (8.5-10.1); Creatinine, Blood 1.16 mg/dL (0.60-1.20)
--- NOTE | 2023-03-19 06:42 | NUR ---
SHIFT SUMMARY PATIENT ALERT AND ORIENTED X4. STAND BY ASSIST TO USE THE RESTROOM FOR LINE MANAGEMENT. DENIES CHEST PAIN AND SHORTNESS OF BREATH. ON ROOM AIR WHILE AWAKE, 4 LITERS WHILE SLEEPING. VITAL SIGNS STABLE. NPO PENDING ANGIOGRAM. NO ACUTE ISSUES NOTED OVERNIGHT. WILL CONTINUE TO MONITOR. CALL LIGHT WITHIN REACH.
[2023-03-19 11:49] LABS: U Amphetamine Screen DETECTED; U Barbituate Screen Not Detected; U Benzodiazapine Screen Not Detected; U Cannabinoids Screen DETECTED; U Cocaine Screen Not Detected; U Methadone Screen Not Detected; U Methamphetamine Screen DETECTED
[2023-03-19 11:50] LABS: U Buprenorphine Screen Not Detected; U Opiates Screen Not Detected; U Oxycodone Screen Not Detected; U Phencyclidine Screen Not Detected; U Propoxyphene Screen Not Detected
--- NOTE | 2023-03-19 18:57 | NUR ---
YEND OF SHIFT PT A&O X4. VSS. MONITOR SHOWING SR W/ ST DEPRESSION, HR 70s-80s. SPO2 > 92% ON 4L NC OR CPAP W/ 10L BLEED IN WHILE SLEEPING. PT GONE FOR ANGIOGRAM TODAY. R RADIAL ACCESS SITE RECOVERY WNL. TRANSPARENT DRESSING & ARM BOARD IN PLACE TO R WRIST. HEPARIN GTT DC'd PER MD ORDER. PT DENYING PAIN/DISCOMFORT. PT SLEEPING MUCH OF SHIFT. 1 PERSON ASSIST TO BATHROOM. PT REQUIRING ASSISTANCE USING URINAL D/T LACK OF COORDINATION W/ CORDS/LINES & URINATING IN URINAL W/OUT URINATING ON FLOOR.
[2023-03-20 04:06] VITALS: BP 133/75
[2023-03-20 05:05] LABS: BASOPHILS ABSOLUTE AUTO 0.09 K/mm3 (0.00-0.23); BASOPHILS PERCENT AUTO 1 % (0-2); EOSINOPHILS ABSOLUTE AUTO 0.13 K/mm3 (0.00-0.68); EOSINOPHILS PERCENT AUTO 1 % (0-6); Hematocrit 54.7 % (37.0-53.0); Hemoglobin 17.4 g/dL (13.5-17.5); IMMATURE GRAN ABSOLUTE AUTO 0.04 K/mm3 (0.00-0.10); IMMATURE GRAN PERCENT AUTO 0 % (0-1); LYMPHOCYTES ABSOLUTE AUTO 2.47 K/mm3 (0.84-5.20); LYMPHOCYTES PERCENT AUTO 19 % (21-46); MONOCYTES ABSOLUTE AUTO 1.24 K/mm3 (0.16-1.47); MONOCYTES PERCENT AUTO 9 % (4-13); Mean Corpuscular HGB 28.6 pg (26.0-34.0); Mean Corpuscular HGB Conc 31.8 g/dL (31.5-36.5); Mean Corpuscular Volume 90 fL (80-100); NEUTROPHILS ABSOLUTE AUTO 9.41 K/mm3 (1.96-9.15); NEUTROPHILS PERCENT AUTO 70 % (41-73); Platelet Count 355 K/mm3 (150-400); RDW Coefficient Variation 15.1 % (11.7-14.2); RDW Standard Deviation 48.8 fL (35.1-46.3); Red Blood Cell Count 6.09 M/mm3 (4.30-5.90); White Blood Cell Count 13.38 K/mm3 (4.00-11.30)
[2023-03-20 05:24] LABS: Bun/Creatinine Ratio 19.5 (12.0-20.0); Calcium, Blood 9.1 mg/dL (8.5-10.1); Creatinine, Blood 1.13 mg/dL (0.60-1.20); Magnesium, Blood 2.2 mg/dL (1.6-2.4); Potassium, Blood 3.7 mmol/L (3.5-5.5)
--- NOTE | 2023-03-20 06:24 | NUR ---
SHIFT SUMMARY PATIENT ALERT AND ORIENTED X4. HAD NO COMPLAINTS OF PAIN OR SHORTNESS OF BREATH. VITAL SIGNS STABLE, SINUS RHYTHM ON TELE. RIGHT RADIAL SITE FREE FROM BRUSING/SWELLING, ARM BOARD IN PLACE. NO ACUTE ISSUES NOTED OVERNIGHT. WILL CONTINUE TO MONITOR.
[2023-03-20 07:43] VITALS: BP 132/94
--- NOTE | 2023-03-20 10:47 | NUR ---
ASSUMPTION OF CARE THIS RN ASSUMED CARE AT APPROX 0700. PT AOX4, FLAT AFFECT. IRRITABLE AT TIMES. IS RESTLESS IN ROOM, AMBULATING FROM BED TO CHAIR FREQUENTLY. EXPRESSING DESIRE TO DISCHARGE HOME TODAY. COOPERATIVE WITH CARE. PT's MOTHER AT BEDSIDE THIS MORNING. STATUS CHANGE TO MEDICAL WITH TELEMETRY. THIS RN CONTACTED MD REGARDING PT's DESIRE TO DISCHARGE HOME TODAY. NO NEW ORDERS RECEIVED AT THIS TIME, WAS TOLD THAT MD IS CURRENTLY IN ROUNDS, WOULD NOTIFY ONCE DONE. VSS. DENIES CHEST PAIN AND PRESSURE. BP STABLE. POD 1, ANGIOGRAM. SITE WNL, TEGADERM DRESSING C/D/I. ARMBOARD USE ENCOURAGED, PT FREQUENTLY REMOVES. WHILE AWAKE, PT IS ON 4L VIA NC, SATS >90%. DESATS WHILE SLEEPING, USE OF CPAP ENCOURAGED, PT COMPLIANT. PT INDEPENDENT AT BASELINE, STAND BY ASSIST FOR CORD AND DEVICE MANAGEMENT. VOIDING. BM THIS MORNING. CALL LIGHT IN REACH.
[2023-03-20] MEDS ORDERED: AMLO5 PO (11:53)
[2023-03-20] MEDS ORDERED: K-Dur20 MEQ PO (11:54)
[2023-03-20] MEDS ORDERED: TORSE20 PO (11:55)
[2023-03-20 12:55] VITALS: BP 124/90
--- NOTE | 2023-03-20 13:15 | NUR ---
DISCHARGE NOTE NO ACUTE CHANGES SINCE ASSUMPTION OF CARE NOTE. PT REMAINS AOX4. VS REMAIN STABLE. TELEMETRY CONTINUING TO SHOW SR, RATE 70's-80's. NO ONSET OF CHEST PAIN OR PRESSURE. PT REPORTS THAT HE IS ON ROOM AIR AT BASELINE. TITRATED FROM 4L VIA NC TO ROOM AIR, SATS >90%. MOTHER AT BEDSIDE THROUGHOUT SHIFT. MD TO ORDER DISCHARGE HOME. BOTH PT AND MOTHER AGREE WITH PLAN FOR DISCHARGE. THIS RN PROVIDED DISCHARGE EDUCATION REGARDING MEDICATION, FOLLOW-UP CARE. HARD SCRIPT PROVIDED FOR OUTPATIENT LAB FOLLOW-UP, BMP. BOTH PT AND HIS MOTHER REPORT VERBAL UNDERSTANDING OF DISCHARGE INSTRUCTION, ASK QUESTIONS NEEDED. IV REMOVED. TELEMETRY REMOVED. PERSONAL BELONGINGS WITH PT, INCLUDING HOME CPAP MACHINE. PT ABLE TO DRESS HIMSELF IN PERSONAL CLOTHING. PT TRANSFERRED TO PERSONAL VEHICLE VIA WHEELCHAIR AT APPROX 1310.
== END 2023-03-20 13:15 | disposition home or self-care (01) | DRG 280 ==
LOC: ER 14:51 → PCU 17:54
PROVIDERS: Family Medicine Adult Medicine; Internal Medicine Cardiovascular Disease; Nurse Practitioner Acute Care; Physician Assistant; Student in an Organized Health Care Education/Training Program; ADMIT Internal Medicine
PROC: 5A09357 Assistance with Respiratory Ventilation, Less than 24 Consecutive Hours, Continuous Positive Airway Pressure (ICD-10-PCS; 2023-03-16)
PROC: 4A023N7 Measurement of Cardiac Sampling and Pressure, Left Heart, Percutaneous Approach (ICD-10-PCS; principal; 2023-03-19)
PROC: B2111ZZ Fluoroscopy of Multiple Coronary Arteries using Low Osmolar Contrast (ICD-10-PCS; 2023-03-19)
DX: I21.4 Non-ST elevation (NSTEMI) myocardial infarction (principal); I50.23 Acute on chronic systolic (congestive) heart failure; Z68.42 Body mass index [BMI] 45.0-49.9, adult; I16.1 Hypertensive emergency; E66.01 Morbid (severe) obesity due to excess calories; I25.10 Atherosclerotic heart disease of native coronary artery without angina pectoris; E11.9 Type 2 diabetes mellitus without complications; I11.0 Hypertensive heart disease with heart failure; G47.33 Obstructive sleep apnea (adult) (pediatric); J44.9 Chronic obstructive pulmonary disease, unspecified; D72.829 Elevated white blood cell count, unspecified; E03.9 Hypothyroidism, unspecified; F17.210 Nicotine dependence, cigarettes, uncomplicated; F12.90 Cannabis use, unspecified, uncomplicated; I24.9 Acute ischemic heart disease, unspecified; Z95.5 Presence of coronary angioplasty implant and graft; Z79.899 Other long term (current) drug therapy; Z79.51 Long term (current) use of inhaled steroids; Z79.82 Long term (current) use of aspirin; Z79.890 Hormone replacement therapy; Z79.01 Long term (current) use of anticoagulants; Z79.2 Long term (current) use of antibiotics; Z79.84 Long term (current) use of oral hypoglycemic drugs; I25.2 Old myocardial infarction; Z98.890 Other specified postprocedural states
CPT/HCPCS: 36415; 71046; 76937; 80048; 80053; 82947; 83735; 83880; 84484; 85025; 85027; 85520; 85610; 85730; 93005; 93010; 93306; 93458; 94660; 94762; 96374; 96376; 99285-25; A9270; C1769; C1887; C1894; J1644; J1650; J1940; J2250; J2405; J3010; J7030; J7050; Q9967